=== PATIENT | female | born 1995 | race Caucasian/White ===

== ENCOUNTER 2019-06-27 19:34 | Emergency (ER) | payer OTHER, SELFPAY ==
[2019-06-27 19:41] VITALS: BP 140/88; PULSE 104; RESP 20; TEMP 36.1; O2SAT 100
--- NOTE | 2019-06-27 19:56 | DI.RAD.S_ITS ---
PROCEDURE: XR CHEST 2V INDICATIONS: cough, sputum TECHNIQUE: 2 views of the chest were acquired. COMPARISON: None. FINDINGS: Surgical changes and devices: None. Lungs and pleura: Lungs are clear. No pleural effusions or pneumothorax. Mediastinum: Mediastinal contours are normal. Heart size is normal. Bones and chest wall: No suspicious bony abnormalities. Soft tissues appear unremarkable. IMPRESSION: No acute cardiopulmonary disease process. Dictated by: Hui Ramsay MD, PhD on 06/27/2019 at 20:06 Approved by: Hui Ramsay MD, PhD on 06/27/2019 at 20:06
--- NOTE | 2019-06-27 20:32 | ED.NAVMDI ---
HPI - Nausea/Vomiting/Diarrhea General Chief complaint: Nausea/Vomiting/Diarrhea Stated complaint: thinks allergic reaction to a medication Time Seen by Provider: 06/27/19 19:35 Source: patient Mode of arrival: Ambulatory Limitations: no limitations History of Present Illness HPI Narrative: 23-year-old female nonsmoker with history of OCD and autism spectrum presents with her and young child and a chief complaint of some abnormal sensations and feeling hot and after taking some new medications tonight. She was seen and evaluated at the walk-in clinic for evaluation of cough the production of sputum for the past 2 weeks. She denies any chest pain or significant shortness of breath. She has had no fever or chills. She does have some runny nose but no sore throat or ear pain. She was given a prescription for a Zithromax and Charissa Pena. She took the first dose of Azithromycin and then ate dinner and was closely followed by a Charissa Mckee and within minutes she felt weird She denies trouble breathing or swallowing. She denies trouble breathing or rash. She's had no facial swelling nor lips, tongue, or throat swelling. She states she feels jittery, but perhaps a bit better than when it started. Related Data Allergies Allergy/AdvReac Type Severity Reaction Status Date / Time amoxicillin [AMOXICILLIN] Allergy Intermediate FACIAL Unverified 08/22/17 12:24 SWELLING Review of Systems Constitutional Constitutional: Denies chills, Denies fatigue, Denies fever(s), Denies frequent falls, Denies lethargy and Denies weakness Comments: jittery Eyes Eyes: Denies change in vision, Denies eye discharge, Denies irritation and Denies loss of vision ENT Ears, Nose, Mouth, and Throat: Denies change in voice, Denies dizziness, Denies neck pain, Denies sore throat and Denies throat swelling Cardiovascular Cardiovascular: Denies chest pain, Denies irregular heart rhythm, Denies lightheadedness, Denies palpitations, Denies dyspnea, Denies dyspnea on exertion and Denies orthopnea Respiratory Respiratory: Reports cough, Denies dyspnea, Denies dyspnea on exertion and Denies wheezing Gastrointestinal Gastrointestinal: Denies abdominal pain, Denies change in bowel habits, Denies diarrhea, Denies nausea and Denies vomiting Genitourinary Genitourinary: Denies hematuria, Denies flank pain, Denies urinary incontinence and Denies urinary urgency Musculoskeletal Musculoskeletal: Denies back pain, Denies muscle weakness, Denies neck pain, Denies numbness and Denies tingling Integumentary/Breasts Skin/Breast: Denies pruritus, Denies erythema, Denies rash and Denies wounds Neurologic Neurologic: Denies behavioral changes, Denies confusion, Denies dizziness, Denies frequent falls, Denies loss of vision, Denies numbness, Denies tingling and Denies weakness Psychiatric Psychiatric: Denies anxiety, Denies behavioral changes, Denies confusion, Denies depression, Denies homicidal ideation and Denies suicidal ideation Endocrine Endocrine: Denies fatigue, Denies flushing and Denies palpitations Hematologic/Lymphatic Hematologic/Lymphatic: Denies easy bruising Allergic/Immunologic Allergic/Immunologic: Denies urticaria, Denies throat swelling and Denies wheezing Patient History Social History Smoking Status: Never smoker Smoking Status: Never smoker alcohol intake frequency: a few times a month Substance Use Type: does not use Exam Narrative Exam Narrative: GENERAL: [23] year old patient appears stated age. Well-nourished, well-developed patient, in mild distress. HEAD: Atraumatic. Normocephalic. EYES: Pupils equal round and reactive. Extraocular motions intact. No scleral icterus. No injection or drainage. ENT: Nose without bleeding, purulent drainage. Throat without erythema, tonsillar hypertrophy or exudate. Airway patent. NECK: Trachea midline. Non tender CARDIOVASCULAR: Regular rate and rhythm without murmurs, gallops, or rubs. RESPIRATORY: Clear to auscultation. Breath sounds equal bilaterally. No wheezes, rales, or rhonchi. GASTROINTESTINAL: Abdomen soft, non-tender, nondistended. EXTREMITIES: No edema or joint tenderness. BACK: Nontender without deformity or crepitance. No flank tenderness. NEURO: AOx3. SKIN: No rash or erythema of visible areas Initial Vital Signs Initial Vital Signs: Vital Signs Temperature 97 F L 06/27/19 19:41 Pulse Rate 104 H 06/27/19 19:41 Respiratory Rate 20 06/27/19 19:41 Blood Pressure 140/88 06/27/19 19:41 Pulse Oximetry 100 06/27/19 19:41 Course Orders Ordered: ED Orders 06/27/19 19:56 XR chest 2V Stat Vital Signs Vital signs: Vital Signs - 8 hr 06/27/19 19:41 06/27/19 20:55 Temperature 97 F L 97.9 F Pulse Rate 104 H 75 Respiratory Rate 20 16 Blood Pressure 140/88 Blood Pressure [Left Arm] 128/78 Pulse Oximetry 100 97 MDM - Nausea/Vomiting/Diarrhea MDM Narrative Medical decision making narrative: Patient with very non-specific, mild, largely improved symptoms best described as jittery after two new medications. She states she has probably taken Azithro before without trouble. She's got no classic allergic symptoms and has a very reassuring exam. We discussed the low likelihood of this being true allergy and elect to hold off on taking more Tessalon and resuming Azithro tomorrow. She understands return precautions and has had questions answered to her apparent satisfaction Discharge Plan Departure Patient Disposition: Home Clinical Impression: Feared complaint without diagnosis Discharge Date/Time: 06/27/19 20:56 Instructions: DI for Acute Bronchitis Activity Restrictions/Additional Instructions: *You have been diagnosed with [acute bronchitis and possible medication reaction] *What to do: *Take medications as directed: Stop taking the Tessalon Perles and continue the azo through my soon as previously instructed *Follow up with your primary care provider in 2-3 days, call for an appointment. Let them know you were seen in the Emergency Department and that we ask that you be seen in follow up *Return to ER if you should have any new, worsening or concerning symptoms
[2019-06-27 20:55] VITALS: BP 128/78; PULSE 75; RESP 16; TEMP 36.6; O2SAT 97
== END 2019-06-27 20:56 | disposition home or self-care (01) ==
PROVIDERS: Emergency Provider Emergency Medicine
DX: T78.40XA Allergy, unspecified, initial encounter (principal); R05 Cough
CPT/HCPCS: 71046; 99283

== ENCOUNTER 2023-05-26 10:49 | Emergency (ER) | payer OTHER, SELFPAY ==
[2023-05-26] VITALS (11 sets, daily range): BP systolic 101–136; BP diastolic 59–83; PULSE 96–138; RESP 10–15; TEMP 37.2–39.2; O2SAT 96–99
--- NOTE | 2023-05-26 11:06 | DI.RAD.S_ITS ---
PROCEDURE: XR CHEST 1V INDICATIONS: suspected sepsis TECHNIQUE: One view of the chest was acquired. COMPARISON: Located Within [facility], CR, XR CHEST 2V, 06/27/2019, 19:53. FINDINGS: Surgical changes and devices: None. Lungs and pleura: Lungs are clear. No pleural effusions or pneumothorax. Mediastinum: Mediastinal contours appear normal. Heart size is normal. Bones and chest wall: No suspicious bony lesions. Overlying soft tissues appear unremarkable. IMPRESSION: No acute cardiopulmonary abnormality is seen. Dictated by: Eliel Patricio M.D. on 05/26/2023 at 11:20 Approved by: Eliel Patricio M.D. on 05/26/2023 at 11:22
[2023-05-26 11:16] LABS: Strep Grp A by PCR Rapid Positive (Negative)
--- NOTE | 2023-05-26 11:25 | PC.NURSE ---
Pt reports my kidney's also hurt.
[2023-05-26] MEDS: KETOROLAC 30 MG/ML VIAL 15 MG IV (11:36)
[2023-05-26] MEDS: SODIUM CHLORIDE 0.9% 1,000 ML 1000 ML IV ×2 (11:36→13:02)
[2023-05-26] MEDS: ACETAMINOPHEN IV 1,000 MG/100 ML VIAL 400 MG IV (11:37)
[2023-05-26 11:52] LABS: Influenza A - CEPHEID Flu A NEGATIVE (NEGATIVE); Influenza B - CEPHEID Flu B NEGATIVE (NEGATIVE); Respiratory Syncytial Virus Negative (Negative)
[2023-05-26 11:53] LABS: Add Manual Diff / Slide Review NO; Basophils Absolute Auto 0 /uL (0-100); Basophils Percent Auto 0.1 % (0-2); Eosinophils Absolute Auto 0 /uL (0-450); Hemoglobin 13.3 g/dL (12.0-16.0); Lymphocytes Absolute Auto 1000 /uL (1100-4500); Lymphocytes Percent Auto 4.6 % (25-40); Mean Corpuscular HGB Conc 33.3 % (30-36); Mean Corpuscular Hemoglobin 28.7 PG (26-34); Mean Corpuscular Volume 86.2 fL (80-100); Monocytes Absolute Auto 1400 /uL (0-900); Monocytes Percent Auto 6.2 % (3-14); Neutrophils Absolute Auto 19800 /uL (1500-7000); Neutrophils Percent Auto 89.1 % (50-75); Platelet Count 370 X10^3/uL (150-400); Red Blood Cell Count 4.64 X10^6/uL (4.0-5.2); White Blood Cell Count 22.3 X10^3/uL (4.5-11.0)
[2023-05-26 11:59] LABS: Bacteria Urine Many (>30); Culture Indicated Urine Specimen Cultured; RBC Urine None Seen (0-5/HPF); Squamous Epithelial Cell Urine 10-30 /HPF (0-5/HPF); WBC Urine >100/HPF (0-5/HPF)
[2023-05-26 11:59] LABS: INR 1.2 (0.9-1.3); Prothrombin Time 13.4 SECONDS (9.4-12.5)
[2023-05-26 12:00] LABS: COVID-19 CEPHEID 4-PLEX PCR Negative (Negative)
[2023-05-26 12:02] LABS: PTT Partial Thromboplastin Tim 32 SECONDS (25.1-36.5)
[2023-05-26 12:03] LABS: Lactate (Lactic Acid) 1.1 mmol/L (0.7-2.1)
[2023-05-26 12:04] LABS: Alanine Aminotransferase 25 IU/L (<35); Albumin 4.2 g/dL (3.5-5.0); Albumin Globulin Ratio 1.1 (1.0-2.8); Alkaline Phosphatase 74 U/L (38-126); Aspartate Aminotransferase 22 IU/L (14-36); BUN Creatinine Ratio 7.4 (6-22); Bilirubin Total 0.5 mg/dL (0.2-1.3); Blood Urea Nitrogen 6 mg/dL (7-17); Calcium 9.1 mg/dL (8.4-10.2); Carbon Dioxide 28 mmol/L (22-32); Chloride 101 mmol/L (98-107); Estimated Glomerular Filt Rate > 60 mL/min (>60); Globulin 3.9 g/dL (1.7-4.1); Glucose 118 mg/dL (70-100); HEMOLYSIS < 15 (0-50); Lipase 57 U/L (23-300); Potassium 3.8 mmol/L (3.4-5.1); Sodium 135 mmol/L (137-145); Total Protein 8.1 g/dL (6.3-8.2)
[2023-05-26] MEDS: ONDANSETRON 4 MG/2 ML INJ IV (12:11)
--- NOTE | 2023-05-26 12:17 | ED_ITS ---
HPI - Fever General Chief Complaint: Fever Stated Complaint: sore throat, diff swallowing Time Seen by Provider: 05/26/23 11:28 Source: patient Mode of arrival: Ambulatory Limitations: no limitations History of Present Illness HPI Narrative: 27-year-old female nonsmoker with history of OCD, autism spectrum who presents with fever, sore throat, headache, flank pain and muscle aches since yesterday. T-max 104? at home. Patient says she can not swallow but is able to tolerate secretions. She has states no change to voice. No chest pain, no shortness of breath, some mild nausea but no vomiting. Denies any diarrhea or constipation. She does complain of some bilateral flank pain. She denies dysuria, urgency or frequency. Denies any rash or skin changes. States she has a history of asthma has been using her albuterol little bit more since the cold weather but not regularly. She does not feel wheezy. She takes sertraline and citalopram as well as oral contraceptive. Patient states allergic to amoxicillin gets hives and facial swelling. No tobacco, occasional alcohol, no recreational drugs. Related Data Home Medications Medication Instructions Recorded Confirmed cetirizine 10 mg capsule (Zyrtec) 10 mg PO DAILY PRN 07/28/21 04/19/23 Previous Rx's Medication Instructions Recorded levonorgestrel-ethinyl estradiol 1 tab PO DAILY #84 tabs 11/07/22 0.1 mg-20 mcg tablet (Aviane) albuterol sulfate 90 mcg/actuation See Rx Instructions .Route 04/19/23 aerosol inhaler .COMPLEX #6.7 grams citalopram 40 mg tablet 40 mg PO DAILY #90 tabs 04/19/23 clindamycin HCl 300 mg capsule 300 mg PO QID #40 caps 05/26/23 nitrofurantoin 100 mg PO Q12H 5 days #10 caps 05/26/23 monohydrate/macrocrystals 100 mg capsule (Macrobid) tramadol 50 mg tablet 50 mg PO Q6H PRN pain #10 tabs 05/26/23 Allergies Allergy/AdvReac Type Severity Reaction Status Date / Time amoxicillin [AMOXICILLIN] Allergy Intermediate FACIAL Verified 05/26/23 11:12 SWELLING Review of Systems Review of Systems ROS Unobtainable: All systems reviewed & are unremarkable except as noted in HPI and below Patient History Medical History Asthma (~2010) Depression Tourette's Migraines (~2010) Headache (~2010) Painful menstrual periods (~2010) Ovarian cyst (~2010) Kidney stones (~2017) Anxiety Surgical History Anesthesia [place] teeth removed History of cholecystectomy History of surgical removal of ganglion cyst History of hand surgery History of tonsillectomy Family History Father Skin cancer Mother Depression Mental health problem Sister Borderline personality disorder Mental health problem Sister History of bipolar disorder Mental health problem Grandfather Cancer Mental health problem Grandmother Dementia Diabetes mellitus Mental health problem Grandfather Cancer Social History Smoking Status: Never smoker Smoking Status: Never smoker alcohol intake frequency: a few times a month Substance Use Type: does not use Exam Narrative Exam Narrative: GEN: well nourished female, alert and oriented x 3, patient appears to be in mild distress. Patient is warm to touch. HEENT: Atraumatic, pupils are equal round reactive to light, extraocular movements are intact, nares are clear, there is no conjunctival pallor. Throat is erythematous without exudate, no tonsillar enlargement or uvular deviation, patient is slightly hoarse. Mucous membranes appear dry. Patient is lying flat on her back without any difficulty with secretions, stridor or breathing. HEART: Regular rate and rhythm without murmur, clicks, rubs. LUNGS:Lungs clear to auscultation, no wheezes, rales, crackles, chest moves symmetrically ABD:bowel sounds normal, soft, non-tender, no guarding, rebound, rigidity, no masses noted, no hepatosplenomegaly :No CVA tenderness MSCL: Non-tender, no muscle atrophy, muscles strength 5/5 upper and lower extremities, full range of motion, normal gait NEURO:CN 2-12 intact, sensation normal. SKIN: No rash, erythema or other skin changes. Initial Vital Signs Initial Vital Signs: Vital Signs Temperature 101.4 F H 05/26/23 10:58 Pulse Rate 138 H 05/26/23 10:58 Respiratory Rate 14 05/26/23 10:58 Blood Pressure 133/83 05/26/23 10:58 Pulse Oximetry 98 05/26/23 10:58 Oxygen Delivery Method Room Air 05/26/23 10:58 Course Orders Ordered: ED Orders 05/26/23 11:05 Covid-19 + FLU A/B + RSV - PCR Stat Strep Grp A by PCR Rapid Stat Throat Culture Stat 05/26/23 11:06 XR chest 1V Stat RT Consult Eval and Treat NOW 05/26/23 11:29 Blood Culture Stat Complete Blood Count AUTO DIFF Stat Comprehensive Metabolic Panel Stat Lactate (Lactic Acid) Stat Lipase Stat PTT Partial Thromboplastin Omar Stat Procalcitonin Stat Prothrombin Time INR Stat 05/26/23 11:36 Urine Culture Stat Urine Microscopic Stat Discontinued Medications Dexamethasone (Dexamethasone 10 Mg/Ml Vial) 10 mg IV NOW ONE Stop: 05/26/23 12:15 Last Admin: 05/26/23 12:24 Dose: 10 mg Documented By: SB Sodium Chloride (Normal Saline 0.9%) 1,000 mls @ 1,000 mls/hr IV BOLUS ONE Stop: 05/26/23 12:05 Last Infusion: 05/26/23 13:02 Dose: Infused Documented By: Admin: 05/26/23 11:36 Dose: 1,000 mls/hr Documented By: SB Acetaminophen (Ofirmev) 1,000 mg in 100 mls @ 400 mls/hr IV NOW ONE Stop: 05/26/23 11:34 Last Infusion: 05/26/23 12:03 Dose: Infused Documented By: Admin: 05/26/23 11:37 Dose: 400 mls/hr Documented By: SB Sodium Chloride (Normal Saline 0.9%) 1,000 mls @ 1,000 mls/hr IV BOLUS ONE Stop: 05/26/23 13:13 Last Infusion: 05/26/23 14:20 Dose: Infused Documented By: Admin: 05/26/23 13:02 Dose: 1,000 mls/hr Documented By: SB Clindamycin Phosphate (Cleocin) 900 mg in 50 mls @ 50 mls/hr IV NOW ONE Stop: 05/26/23 13:15 Last Infusion: 05/26/23 13:30 Dose: Infused Documented By: Admin: 05/26/23 12:24 Dose: 50 mls/hr Documented By: PEPITO Ketorolac Tromethamine (Ketorolac 30 Mg/Ml Vial) 15 mg IV NOW ONE Stop: 05/26/23 11:21 Last Admin: 05/26/23 11:36 Dose: 15 mg Documented By: PEPITO Ondansetron HCl (Ondansetron 4 Mg/2 Ml Inj) 4 mg IV NOW PRN PRN Reason: Nausea And Vomiting Last Admin: 05/26/23 12:11 Dose: 4 mg Documented By: PEPITO Ondansetron HCl (Ondansetron 4 Mg Odt) 4 mg SL NOW PRN PRN Reason: Nausea And Vomiting Vital Signs Vital signs: Vital Signs - 8 hr 05/26/23 11:18 05/26/23 11:19 05/26/23 11:19 Temperature Pulse Rate 123 H 124 H Respiratory Rate 15 13 Blood Pressure 136/82 Pulse Oximetry 97 Oxygen Delivery Method 05/26/23 11:35 05/26/23 11:47 05/26/23 11:47 Temperature Pulse Rate 122 H 119 H Respiratory Rate 10 L Blood Pressure 133/79 Pulse Oximetry 99 Oxygen Delivery Method 05/26/23 12:00 05/26/23 12:00 05/26/23 12:30 Temperature 102.5 F H Pulse Rate 117 H Respiratory Rate 12 Blood Pressure 128/75 128/75 Pulse Oximetry 98 Oxygen Delivery Method Room Air 05/26/23 12:30 05/26/23 13:00 05/26/23 13:00 Temperature Pulse Rate 110 H 106 H Respiratory Rate 14 14 Blood Pressure 112/64 Pulse Oximetry 97 97 Oxygen Delivery Method Room Air 05/26/23 13:30 05/26/23 13:30 05/26/23 13:44 Temperature 99.0 F Pulse Rate 99 H Respiratory Rate 14 Blood Pressure 101/59 L 105/59 L Pulse Oximetry 97 Oxygen Delivery Method Room Air 05/26/23 13:44 05/26/23 14:00 05/26/23 14:00 Temperature Pulse Rate 99 H 96 H Respiratory Rate 12 13 Blood Pressure 109/61 Pulse Oximetry 97 96 Oxygen Delivery Method MDM - Fever Lab Data 05/26/23 11:29 05/26/23 11:29 Labs: Lab Results 05/26/23 05/26/23 05/26/23 Range/Units 11:05 11:29 11:36 WBC 22.3 H (4.5-11.0) X10^3/uL RBC 4.64 (4.0-5.2) X10^6/uL Hgb 13.3 (12.0-16.0) g/dL Hct 40.0 (36-46) % MCV 86.2 (80-100) fL MCH 28.7 (26-34) PG MCHC 33.3 (30-36) % RDW 13.0 (11.6-14.8) % Plt Count 370 (150-400) X10^3/uL Neut % (Auto) 89.1 H (50-75) % Lymph % (Auto) 4.6 L (25-40) % [place] % (Auto) 6.2 (3-14) % Eos % (Auto) 0.0 L (2-4) % Baso % (Auto) 0.1 (0-2) % Neut # (Auto) 56571 H (5821-7306) /uL Lymph # (Auto) 1000 L (4600-9443) /uL [place] # (Auto) 1400 H (0-900) /uL Eos # (Auto) 0 (0-450) /uL Baso # (Auto) 0 (0-100) /uL PT 13.4 H (9.4-12.5) SECONDS INR 1.2 (0.9-1.3) APTT 32 (25.1-36.5) SECONDS Sodium 135 L (137-145) mmol/L Potassium 3.8 (3.4-5.1) mmol/L Chloride 101 (98-107) mmol/L Carbon Dioxide 28 (22-32) mmol/L BUN 6 L (7-17) mg/dL Creatinine 0.81 (0.52-1.04) mg/dL Estimated GFR > 60 (>60) mL/min BUN/Creatinine Ratio 7.4 (6-22) Glucose 118 H (70-100) mg/dL Lactate 1.1 (0.7-2.1) mmol/L Calcium 9.1 (8.4-10.2) mg/dL Total Bilirubin 0.5 (0.2-1.3) mg/dL AST 22 (14-36) IU/L ALT 25 (<35) IU/L Alkaline Phosphatase 74 (38-126) U/L Total Protein 8.1 (6.3-8.2) g/dL Albumin 4.2 (3.5-5.0) g/dL Globulin 3.9 (1.7-4.1) g/dL Albumin/Globulin Ratio 1.1 (1.0-2.8) Lipase 57 (23-300) U/L Procalcitonin 0.13 (<0.5) ng/mL Urine RBC None seen (0-5/HPF) Urine WBC >100/hpf H (0-5/HPF) Ur Squamous Epith Cells 10-30 /hpf H (0-5/HPF) Urine Bacteria Many (>30) H (None) Ur Culture Indicated? Specimen cultured SARS-CoV-2 (PCR) Negative (Negative) Influenza A (RT-PCR) Flu a negative (NEGATIVE) Influenza B (RT-PCR) Flu b negative (NEGATIVE) RSV (PCR) Negative (Negative) Group A Strep (PCR) Positive H (Negative) Point of Care Testing Test Results Negative Urine Dip Bedside Urine Glucose Negative Bedside Urine Bilirubin + 1 Bedside Urine Ketone +/- 5 Urine Specific [place] 1.010 Bedside Urine Occult Blood - Negative Bedside Urine pH 7.5 Bedside Urine Protein +++ 300 Bedside Urine Urobilinogen - Negative Bedside Urine Nitrite - Negative Bedside Urine Leukocytes + 70 Esterase Imaging Data Chest x-ray: Radiologist's Impression: Close Chest X-Ray (Signed) PatricioEliel - 05/26/23 Chest X-Ray (Signed) Hui Ramsay - 06/27/19 Launch?Image [address] [address] XRay Report Signed Patient: Tammi Patel MR#: [id number] : 1995 Acct:[id number] Age/Sex: 27 / F Date of Service: 05/26/23 Loc: ED Accession Number: [id number] Procedure: XR chest 1V Ordering Provider: Olga Bro D.O. PROCEDURE: XR CHEST 1V INDICATIONS: suspected sepsis TECHNIQUE: One view of the chest was acquired. COMPARISON: [facility], , XR CHEST 2V, 06/27/2019, 19:53. FINDINGS: Surgical changes and devices: None. Lungs and pleura: Lungs are clear. No pleural effusions or pneumothorax. Mediastinum: Mediastinal contours appear normal. Heart size is normal. Bones and chest wall: No suspicious bony lesions. Overlying soft tissues appear unremarkable. IMPRESSION: No acute cardiopulmonary abnormality is seen. Dictated by: Eliel Patricio M.D. on 05/26/2023 at 11:20 Approved by: Eliel Patricio M.D. on 05/26/2023 at 11:22 [facility] Narrative Medical decision making narrative: 27-year-old female meeting septic criteria has a heart rate of 117 temperature of 102.5? F not hypotensive oxygenating well. Patient has complaint of sore throat as well some flank pain and generalized feeling unwell. Has had symptoms for approximately 24 hours. Patient has had tonsillectomy but his positive for strep. She has a white count of 22. Leftward shift with normal hemoglobin and platelets. Coags are negative, electrolytes are appropriate BUN 6 with normal creatinine glucose of 118 normal lactate at 1.1 with normal LFTs and procalcitonin of 0.13. Patient's urine sample shows greater than 100 wbc's 10-30 squamous epithelials and many bacteria, positive for leukocyte esterase positive for protein. Chest x-ray is negative. Patient has received Tylenol, Toradol and L of fluids. We will also give a dose of dexamethasone and a dose of clindamycin she is allergic to amoxicillin we will cover for her strep. She does not have any palpable pain on her flanks but will likely cover for UTI/pyelo as well. Patient is tolerating secretions as well and requesting a popsicle. We will give a 2 L of fluids. Patient is tolerating oral fluids. Tachycardia has improved significantly to the 90s. Patient feels improved. Discussed return precautions but felt appropriate for discharge home. Because of flank pain patient was covered with secondary antibiotic for possible UTI/pyelo as well as for her strep throat. Discharge Plan Departure Patient Disposition: Home Clinical Impression: Pharyngitis, streptococcal, UTI (urinary tract infection) Activity Restrictions/Additional Instructions: Please follow-up with your physician for recheck as needed. You tested positive for strep today. Your urine also shows possible infection. You have been prescribed 2 antibiotics to cover both of these. Take these until completed. I would recommend taking a probiotic or yogurt with live culture while taking these antibiotics. You may take Tylenol up to a 1000 mg every 6 hours and/or ibuprofen up to 600 mg every 6 hours for fever and pain. You may take 1-2 tablets of pain medication every 6 hours as needed. This medication can make you sleepy do not drive, perform hazardous activities or make any major decisions while taking it. This medication will make you constipated please take a stool softener once to twice daily until stools are soft and regular. Prescription sent to [facility]. Please return for new or worsening symptoms, new chest pain or shortness of breath, swelling of your throat, stridor, high-pitched wheezing, new or worsening flank pain, persistent vomiting, lightheadedness or passing out or other new or concerning changes. Prescriptions: New clindamycin HCl 300 mg capsule 300 mg PO QID Qty: 40 0RF tramadol 50 mg tablet 50 mg PO Q6H PRN (Reason: pain) Qty: 10 0RF nitrofurantoin monohyd/m-cryst [Macrobid] 100 mg capsule 100 mg PO Q12H 5 Days Qty: 10 0RF Rx Instructions: must administer with a meal/food No Action Zyrtec 10 mg capsule 10 mg PO DAILY PRN levonorgestrel-ethinyl estrad [Aviane] 0.1-20 mg-mcg tablet 1 tab PO DAILY Qty: 84 3RF Rx Instructions: take at the same time everyday citalopram 40 mg tablet 40 mg PO DAILY Qty: 90 3RF albuterol sulfate 90 mcg/actuation HFA aerosol inhaler See Rx Instructions .ROUTE .COMPLEX Qty: 6.7 0RF Dose Instruction: INHALE 2 PUFFS BY MOUTH AND INTO THE LUNGS EVERY 6 HOURS NEEDED FOR SHORTNESS OF BREATH OR WHEEZING Rx Instructions: INHALE 2 PUFFS BY MOUTH AND INTO THE LUNGS EVERY 6 HOURS NEEDED FOR SHORTNESS OF BREATH OR WHEEZING Referrals: Gregorio Jensen MD [Primary Care Provider] - Stand Alone Forms: Patient Portal/API
[2023-05-26 12:19] LABS: Procalcitonin 0.13 ng/mL (<0.5)
[2023-05-26] MEDS: CLINDAMYCIN 900 MG/50 ML PIGGYBACK 50 MG IV (12:24)
[2023-05-26] MEDS: DEXAMETHASONE 10 MG/ML VIAL IV (12:24)
== END 2023-05-26 14:22 | disposition home or self-care (01) ==
PROVIDERS: Emergency Provider Emergency Medicine; PCP Family Medicine
DX: J02.0 Streptococcal pharyngitis (principal); N39.0 Urinary tract infection, site not specified; R50.9 Fever, unspecified; Z20.822 Contact with and (suspected) exposure to COVID-19
CPT/HCPCS: 0241U; 36415; 71045; 80053; 81003; 81015; 81025; 83605; 83690; 84145; 85025; 85610; 85730; 87040; 87070; 87077; 87086; 87147; 87651; 96365; 96367; 96375; 99284; J0136; J1100; J1885; J2405

== ENCOUNTER → 2024-04-23 17:35 | Outpatient (CLI) | payer OTHER, SELFPAY ==
[2024-04-23 19:42] LABS: Urine N gonorrhoeae NOT DETECTED
[2024-04-23 19:43] LABS: Urine Chlamydia NOT DETECTED
== END ==
PROVIDERS: PCP Family Medicine; Visit Provider Physician Assistant Surgical
DX: R30.0 Dysuria (principal); N89.8 Other specified noninflammatory disorders of vagina
CPT/HCPCS: 87086; 87210; 87491; 87591

== ENCOUNTER → 2024-08-18 09:48 | Outpatient (CLI) | payer OTHER, SELFPAY ==
[2024-08-18 10:36] LABS: Add Manual Diff / Slide Review NO; Basophils Absolute Auto 100 /uL (0-100); Basophils Percent Auto 0.7 % (0-2); Eosinophils Absolute Auto 100 /uL (0-450); Eosinophils Percent Auto 1.7 % (2-4); Hematocrit 38.9 % (36-46); Hemoglobin 13.3 g/dL (12.0-16.0); Lymphocytes Absolute Auto 1900 /uL (1100-4500); Lymphocytes Percent Auto 25.8 % (25-40); Mean Corpuscular HGB Conc 34.1 % (30-36); Mean Corpuscular Hemoglobin 28.9 PG (26-34); Mean Corpuscular Volume 84.7 fL (80-100); Monocytes Absolute Auto 400 /uL (0-900); Monocytes Percent Auto 5.2 % (3-14); Neutrophils Absolute Auto 4900 /uL (1500-7000); Neutrophils Percent Auto 66.6 % (50-75); Platelet Count 382 X10^3/uL (150-400); Red Blood Cell Count 4.59 X10^6/uL (4.0-5.2); Red Cell Distribution Width 13.1 % (11.6-14.8); White Blood Cell Count 7.3 X10^3/uL (4.5-11.0)
[2024-08-18 11:01] LABS: Alanine Aminotransferase 25 IU/L (<35); Albumin 4.2 g/dL (3.5-5.0); Albumin Globulin Ratio 1.4 (1.0-2.8); Alkaline Phosphatase 70 U/L (38-126); Aspartate Aminotransferase 28 IU/L (14-36); BUN Creatinine Ratio 14.3 (6-22); Bilirubin Total 0.4 mg/dL (0.2-1.3); Blood Urea Nitrogen 12 mg/dL (7-17); Calcium 9.7 mg/dL (8.4-10.2); Carbon Dioxide 23 mmol/L (22-32); Chloride 106 mmol/L (98-107); Cholesterol 201 mg/dL (140-199); Estimated Glomerular Filt Rate > 60 mL/min (>60); Glucose 102 mg/dL (70-100); HDL Cholesterol 39 mg/dL (40-60); HEMOLYSIS < 15 (0-50); LDL Cholesterol Calculated 134 mg/dL (<100); Potassium 4.3 mmol/L (3.4-5.1); Sodium 138 mmol/L (137-145); Total Protein 7.2 g/dL (6.3-8.2); Triglycerides 141 mg/dL (35-150)
[2024-08-18 11:31] LABS: TSH w/ Reflex to FT4 1.14 uIU/mL (0.47-4.68)
[2024-08-19 03:08] LABS: Apolipoprotein B 109 mg/dL (<90)
== END ==
PROVIDERS: PCP Family Medicine; Referring Provider Family Medicine; Visit Provider Family Medicine
DX: F32.A Depression, unspecified (principal); F41.9 Anxiety disorder, unspecified; F84.0 Autistic disorder; F90.2 Attention-deficit hyperactivity disorder, combined type; G47.19 Other hypersomnia
CPT/HCPCS: 80053; 80061; 82172; 84443; 85025